=== PATIENT | female | born 1955 | race Caucasian/White ===

== ENCOUNTER 2021-04-23 08:38 | Emergency (ER) | payer MEDICARE, OTHER ==
--- NOTE | 2021-04-23 09:33 | EDM.PDOC ---
<Renetta Ruiz - Last Filed: 04/23/21 09:34> ED HPI GENERAL MEDICAL PROBLEM - General Chief Complaint: Respiratory Problem Stated Complaint: TERRIBLE COUGH, TIGHT CHEST, NEG FOR COVID Time Seen by Provider: 04/23/21 09:10 Source of Information: Reports: Patient History Limitations: Reports: No Limitations - History of Present Illness INITIAL COMMENTS - FREE TEXT/NARRATIVE: 65 year old female presents with 2 weeks of cough, congestion, and shortness of breath. She reports that she was evaluated for her symptoms on last week, was tested for covid and discharged. She did this prior to a nasal excision of a cancerous lesion due to her respiratory symptoms. She reports that she started to feel better for a day and then the following day feels like her cough increased, shortness of breath increased and overall fatigue increase. She reports that she has not been able to sleep due to symptoms being so severe. Patient was then seen via telehealth and prescribed zithromax and tessalon pearls. She was unable to fill the RX due to the pharmacy being closed. She had another sleepless night so arrived to ER for evaluation. Symptoms are unchanged from yesterday and she remains afebrile. Tessalon pearls are not helping her cough. Denies cardiac history, denies hypertension, and denies COPD. asthma or other respiratory diagnosis. Onset: Gradual Duration: Week(s): Location: Reports: Chest Quality: Reports: Other (shortness of breath and cough) Severity: Moderate Improves with: Reports: None Worsens with: Reports: None Associated Symptoms: Reports: Cough, Shortness of Breath - Related Data Allergies Allergy/AdvReac Type Severity Reaction Status Date / Time No Known Allergies Allergy Verified 04/23/21 08:57 Home Meds: Home Meds Benzonatate [Tessalon Perle] 100 mg PO TID 04/23/21 [History] Thyroid [[place] Thyroid] 30 mg PO ASDIRECTED 04/23/21 [History] Thyroid [[place] Thyroid] 120 mg PO ASDIRECTED 04/23/21 [History] Past Medical History HEENT History: Reports: None Cardiovascular History: Reports: None Respiratory History: Reports: None Gastrointestinal History: Reports: None COURT OF APPEALS JUDGE History: Reports: , Spontaneous Musculoskeletal History: Reports: Other (See Below) 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 Neurological History: Reports: None Psychiatric History: Reports: None Oncologic (Cancer) History: Reports: Basal Cell Carcinoma, Squamous Cell Carcinoma Other Oncologic History: skin - Infectious Disease History Infectious Disease History: Reports: Chicken Pox, Influenza, Measles, Mumps - Past Surgical History HEENT Surgical History: Reports: Tonsillectomy Female Surgical History: Reports: Tubal Ligation Endocrine Surgical History: Reports: Thyroidectomy Other Endocrine Surgeries/Procedures: 2005 Social & Family History - Tobacco Use Tobacco Use Status *Q: Never Tobacco User ED ROS GENERAL - Review of Systems Review Of Systems: See Below Constitutional: Reports: No Symptoms. Denies: Fever, Chills, Weakness HEENT: Reports: No Symptoms Respiratory: Reports: Shortness of Breath, Pleuritic Chest Pain, Cough. Denies: Wheezing Cardiovascular: Denies: Chest Pain, Blood Pressure Problem, Edema, Lightheadedness Endocrine: Reports: No Symptoms GI/Abdominal: Denies: Abdominal Pain, Nausea, Vomiting : Denies: Dysuria, Flank Pain, Hematuria Musculoskeletal: Reports: No Symptoms Skin: Reports: Wound (Patient had a cancerous lesion on nose removed on saturday. Sutures in place, wound appears wnl) Neurological: Reports: No Symptoms. Denies: Confusion, Dizziness, Headache, Numbness Psychiatric: Reports: No Symptoms Hematologic/Lymphatic: Reports: No Symptoms Immunologic: Reports: No Symptoms ED EXAM, GENERAL - Physical Exam Exam: See Below Free Text/Narrative:: Well appearing and resting on the cart. She is alert and oriented. skin is warm and dry. Respirations are regular and non labored. Vital signs are stable, She has clear lung sounds throughout, abdomen is non tender. Ambulates with steady gait. Incision to nose appears well aproximated with slight erythema. Sutures intact. It is not draining. Exam Limited By: No Limitations General Appearance: Alert, WD/WN, No Apparent Distress Ears: Normal External Exam Nose: No Blood, Other (nasal repair after excision of cancerous lesion. sutures in place. wound looks WNL) Throat/Mouth: Normal Inspection, Normal Lips Head: Atraumatic Neck: Normal Inspection, Non-Tender, Full Range of Motion Respiratory/Chest: No Respiratory Distress, Lungs Clear, Normal Breath Sounds. No: Respiratory Distress, Decreased Breath Sounds, Crackles, Rhonchi, Wheezing, Stridor Cardiovascular: Normal Peripheral Pulses, No Edema GI/Abdominal: Soft, Non-Tender, No Distention (Female) Exam: Deferred Rectal (Female) Exam: Deferred Back Exam: Normal Inspection, Full Range of Motion Extremities: Normal Inspection, Normal Range of Motion, Non-Tender, No Pedal Edema, Normal Capillary Refill Neurological: Alert, Oriented, Normal Cognition, Normal Gait Psychiatric: Normal Affect, Normal Mood Skin Exam: Warm, Dry, No Rash Lymphatic: No Adenopathy Course - Vital Signs Text/Narrative:: Discussed with patient options of care. Due to normal vitals, clear lungs, patient being well appearing, tolerating oral intake, and afebrile, decision to fill previously prescribed antibiotic and start codeine cough syrup. Patient agrees with plan of care. Departure - Departure Disposition: Home, Self-Care 01 Condition: Good Clinical Impression: Cough in adult patient - Discharge Information Instructions: Shortness of Breath, Adult, [id number] Referrals: Lashawn Villela DO [Primary Care Provider] - Forms: ED Department Discharge Care Plan Goals: Start the Zithromax today and continue to stay well hydrated. RX for codeine cough syrup sent to [facility]. Return to the ER if you have worsening shortness of breath, fevers, uncontrolled nausea/vomiting/diarrhea, chest pain or if you do not seem to be improving after taking the Zithromax. Sepsis Event Note (ED) - Evaluation Sepsis Screening Result: No Definite Risk <Ronn Mascorro - Last Filed: 04/23/21 10:38> Course - Vital Signs Last Recorded V/S: Last Vital Signs Temp 97.6 F 04/23/21 08:56 Pulse 77 04/23/21 08:56 Resp 16 04/23/21 08:56 BP 133/79 04/23/21 08:56 Pulse Ox 97 04/23/21 08:56 Departure - Departure Time of Disposition: 09:51 Sepsis Event Note (ED) - Focused Exam Vital Signs: Vital Signs Temp Pulse Resp BP Pulse Ox 04/23/21 08:56 97.6 F 77 16 133/79 97 04/23/21 08:50 97.6 F 77 16 133/79 97 Attestation - Student - Attestation Statement Attestation Statement: I personally performed or re-performed the physical examination and medical decision making. I have verified all student documentation or findings, including history, physical exam and/or medical decision making.
== END 2021-04-23 09:59 | disposition home or self-care (01) ==
LOC: JP.ED 08:38
DX: R05 Cough (principal); R06.02 Shortness of breath; Z86.16 Personal history of COVID-19
CPT/HCPCS: 99283